=== PATIENT | female | born 1965 | race Caucasian/White ===

== ENCOUNTER 2018-11-29 06:20 | Day surgery (SDC) | payer OTHER ==
[2018-11-29] MEDS: SOD CHLORIDE 0.9% 1,000 ML IV (06:00)
[2018-11-29] MEDS: CLINDAMYCIN 600 MG/D5W (PMX) 50 ML IVPB (06:00)
[2018-11-29] MEDS ORDERED: MIDAZOLAM 1 MG/ML 2 ML INJ (08:38)
[2018-11-29] MEDS: BUPIVACAINE 0.25% (MPF) 30 ML INJ (09:00)
[2018-11-29] MEDS ORDERED: GLYCOPYRROLATE 0.4 MG INJ (09:20)
[2018-11-29] MEDS ORDERED: ONDANSETRON 4 MG INJ ×2 (09:20→09:50)
[2018-11-29] MEDS ORDERED: NEOSTIGMINE 3 MG/3 ML SYRINGE (09:20)
[2018-11-29] MEDS ORDERED: CEFAZOLIN 1 GM INJ (09:20)
[2018-11-29] MEDS ORDERED: LIDOCAINE 2% (SDV) 5 ML INJ (09:20)
[2018-11-29] MEDS ORDERED: PROPOFOL 20 ML (09:20)
[2018-11-29] MEDS ORDERED: ROCURONIUM 50 MG INJ (09:20)
[2018-11-29] MEDS ORDERED: HYDROCODONE/APAP (5/325) TAB PO (09:30)
[2018-11-29] MEDS ORDERED: HYDROmorphONE 1 MG/ML SYG (09:49)
[2018-11-29] MEDS ORDERED: MEPERIDINE 25 MG INJ IV (10:00)
[2018-11-29] MEDS ORDERED: HYDROmorphONE 1 MG/5 ML IV SYRINGE IV ×2 (10:00)
[2018-11-29] MEDS ORDERED: FENTAnyl 50 MCG/ML VIAL IV (10:00)
[2018-11-29] MEDS ORDERED: DIPHENHYDRAMINE 50 MG INJ IV (10:00)
[2018-11-29] MEDS: HYDROmorphONE 1 MG/ML SYG IV (10:18)
[2018-11-29] MEDS: ONDANSETRON 4 MG INJ IV (10:19)
[2018-11-29] MEDS: METOCLOPRAMIDE 10 MG INJ IV (14:03)
== END 2018-11-29 14:25 | disposition home or self-care (01) ==
LOC: SDS 06:20
DX: K80.20 Calculus of gallbladder without cholecystitis without obstruction (principal)
CPT/HCPCS: 47562; 88304